=== PATIENT | female | born 1965 | race Caucasian/White ===

== ENCOUNTER 2023-06-30 22:43 | Emergency (ER) | payer OTHER, MEDICAID ==
[~2023-06-30] VITALS: Ht 160 cm; Wt 63.6 kg
[2023-06-30 22:54] VITALS: TEMP 98.2
[2023-07-01] MEDS ORDERED: HYDROcodone/acetaminophen 5mg/325mg tablet PO ONE (00:15)
[2023-07-01] MEDS ORDERED: ondansetron 4mg rapidly disintigrating tab PO ONE (00:15)
[2023-07-01] MEDS ORDERED: ketorolac trometh inj. 60 MG/2 ML VIAL IM ONE (00:15)
[2023-07-01] MEDS ORDERED: ONDA8TAB13 PO (00:19)
[2023-07-01] MEDS ORDERED: HYDR-3965 PO (00:19)
[2023-07-01 00:47] VITALS: BP 145/84; PULSE 82; RESP 18; O2SAT 98
== END 2023-07-01 00:49 | disposition home or self-care (01) ==
LOC: ER 22:44
DX: S92.321A Displaced fracture of second metatarsal bone, right foot, initial encounter for closed fracture (principal); S92.331A Displaced fracture of third metatarsal bone, right foot, initial encounter for closed fracture; S92.341A Displaced fracture of fourth metatarsal bone, right foot, initial encounter for closed fracture; Z88.0 Allergy status to penicillin; Z79.899 Other long term (current) drug therapy; V59.88XA Occupant (driver) (passenger) of pick-up truck or van injured in other specified transport accidents, initial encounter; Y93.89 Activity, other specified; Y92.89 Other specified places as the place of occurrence of the external cause; Y99.8 Other external cause status
CPT/HCPCS: 29515; 73630; 96372; 99283; J1885; L3260